=== PATIENT | male | born 1945 | race Caucasian/White ===

== ENCOUNTER 2021-02-26 06:11 | Day surgery (SDC) | payer MEDICARE, BC ==
[2021-02-22 15:24] VITALS: BMI 31.6
--- NOTE | 2021-02-26 05:21 | P.GSHP ---
History of Present Illness H&P Date: 02/26/21 CHIEF COMPLAINT: Back cyst HISTORY OF PRESENT ILLNESS: The patient is a 75 year-old male with history of mass along the left upper back. He presents today for surgical excision. PAST MEDICAL HISTORY: Please see list. PAST SURGICAL HISTORY: Please see list. MEDICATIONS: Please see list. ALLERGIES: Please see list. SOCIAL HISTORY: Please see list. FAMILY HISTORY: No reports of Crohn disease or ulcerative colitis. REVIEW OF ORGAN SYSTEMS: CONSTITUTIONAL: No reports of fevers or chills. GI: Denies any blood in stools or constipation. PHYSICAL EXAM: VITAL SIGNS: Stable Musculoskeletal: No clubbing cyanosis or edema SKIN: Mid back lesion 4 cm, left upper back GENERAL: Well developed and in no acute distress. Pleasant. HEENT: No sclera icterus. Extraocular movements grossly intact. Moist buccal mucosa. Head is atraumatic, normocephalic. Hears conversational speech. No nasal drainage. NECK: Supple without lymphadenopathy. No JV distention. CHEST: Non-labored respirations and equal bilateral excursions. CARDIOVASCULAR: Regular rate and rhythm. Palpable 2+ radial pulses. ABDOMEN: Soft. Non-tender. Nondistended. NEUROLOGIC: No focal or lateralizing signs. PSYCH: Appropriate affect. Alert and oriented to person, place and time. ASSESSMENT: 1. Left upper back mass, 4-cm PLAN: 1. Will proceed of excision of subcutaneous tumor along the back. 2. DVT prophylaxis. 3. Antibiotic prophylaxis. 4. Time of recovery, at least one week. Past Medical History Past Medical History: GERD/Reflux, Hyperlipidemia, Hypertension, Osteoarthritis (OA), Prostate Disorder, Sleep Apnea/CPAP/BIPAP Additional Past Medical History / Comment(s): hx tachycardia, hx diverticulitis, BPH, hx of HTN -now off medications, esophageal achlasia, hx ulcer yrs ago, precancerous skin lessions, has diff swallowing, History of Any Multi-Drug Resistant Organisms: None Reported Past Surgical History: Ablation, Bowel Resection, Cardiac Ablation, Hernia Repair, Joint Replacement, Orthopedic Surgery Additional Past Surgical History / Comment(s): sigmoid resection, ventral hernia repair, ESOPHAGEAL surgery, R knee replacement, R knee arthroscopy, bilateral lasik eye surgery. skin cancer removed from left arm , rey heel spurs, rey cataracts Past Anesthesia/Blood Transfusion Reactions: No Reported Reaction Smoking Status: Former smoker - Past Family History Father Family Medical History: Cancer Additional Family Medical History / Comment(s): lung Mother Family Medical History: Vascular Disorder Additional Family Medical History / Comment(s): Mother of a cerebral aneurysm Medications and Allergies Home Medications Medication Instructions Recorded Confirmed Type Aspirin EC [Ecotrin Low Dose] 81 mg PO HS 09/01/16 02/22/21 History Lansoprazole [Prevacid] 30 mg PO DAILY 09/01/16 02/22/21 History Pravastatin Sodium [Pravachol] 20 mg PO HS 09/01/16 02/22/21 History Sennosides [Senokot] 17.2 mg PO DAILY 09/01/16 02/22/21 History Allergies Allergy/AdvReac Type Severity Reaction Status Date / Time No Known Allergies Allergy Verified 02/22/21 15:07
[~2021-02-26 06:11] MED LIST: ACETAMINOPHEN TAB 500 MG TAB PO PRN; DEXAMETHASONE SOD PHOSPHATE 4 MG/ML 1 ML VIAL IV ONE; HEPARIN SODIUM,PORCINE/PF 5,000 UNIT/0.5 ML SYRINGE SQ PRN; LACTATED RINGERS 1,000 ML IV SCH; LIDOCAINE 1% (10MG/ML) FOR IV START INTRADERMA PRN; MIDAZOLAM 2 MG/2 ML VIAL IV PRN; ONDANSETRON 4 MG/2 ML VIAL IVP ONE; Pre Op ABX Message 1 EACH MISC MISCELLANE ONE
[2021-02-26] MEDS ORDERED: HYDROmorphone 0.5 MG/0.5 ML SYRINGE IVP PRN (07:00)
[2021-02-26 07:04] VITALS: TEMP 97.2
[2021-02-26 07:14] LABS: Basophils % (A) 1 %; Eosinophils # (A) 0.1 k/uL (0-0.7); Eosinophils % (A) 2 %; HCT 46.8 % (39.0-53.0); HGB 16.7 gm/dL (13.0-17.5); Lymphocytes # (A) 1.6 k/uL (1.0-4.8); Lymphocytes % (A) 30 %; MCH 31.9 pg (25.0-35.0); MCHC 35.7 g/dL (31.0-37.0); MCV 89.4 fL (80.0-100.0); Mean Platelet Volume 6.5; Monocytes # (A) 0.3 k/uL (0-1.0); Monocytes % (A) 6 %; Neutrophils # (A) 3.1 k/uL (1.3-7.7); Neutrophils % (A) 60 %; Platelet Count 221 k/uL (150-450); RBC 5.24 m/uL (4.30-5.90); RDW 12.6 % (11.5-15.5); WBC 5.3 k/uL (3.8-10.6)
[2021-02-26 07:23] LABS: ALT 24 U/L (4-49); AST 29 U/L (17-59); African American GFR (CKD) >90 (>60 ml/min/1.73 sqM); Albumin 4.8 g/dL (3.5-5.0); Alkaline Phosphatase 70 U/L (38-126); Anion Gap 9 mmol/L; Blood Urea Nitrogen 12 mg/dL (9-20); Calcium 9.9 mg/dL (8.4-10.2); Carbon Dioxide 28 mmol/L (22-30); Chloride 102 mmol/L (98-107); Glucose 101 mg/dL (74-99); Non-African American GFR(CKD) 78 (>60 ml/min/1.73 sqM); Potassium 3.9 mmol/L (3.5-5.1); Sodium 139 mmol/L (137-145); Total Bilirubin 0.7 mg/dL (0.2-1.3); Total Protein 7.6 g/dL (6.3-8.2)
[2021-02-26] MEDS ORDERED: fentaNYL (PF) 50 MCG/ML 2 ML AMP ONE (07:28)
[2021-02-26] MEDS ORDERED: MIDAZOLAM 2 MG/2 ML VIAL ONE (07:28)
[2021-02-26] MEDS ORDERED: PROPOFOL 10 MG/ML 20 ML VIAL IV ONE (07:28)
[2021-02-26] MEDS ORDERED: LIDOCAINE 1%-EPI 1:100,000 20 ML VIAL SQ ONE (07:33)
[2021-02-26 07:52] LABS: Prothrombin Time 10.6 sec (9.0-12.0)
--- NOTE | 2021-02-26 08:27 | P.OP ---
Date of Procedure: 02/26/21 Description of Procedure: SURGEON: TERESA VASQUES MD [employer]IST[employer] SPECIALIST: None. PREOPERATIVE DIAGNOSES: 1. Left upper back tumor 2. Gastroesophageal reflux disease 3. Hyperlipidemia POSTOPERATIVE DIAGNOSES: 1. Deep subcutaneous left upper back tumor 6 x 3 cm 2. Gastroesophageal reflux disease 3. Hyperlipidemia PROCEDURES PERFORMED: 1. Excision of deep subcutaneous left upper back mass, 6 x 3 cm 2. Intermediate closure left upper back incision, 6-cm Anesthesia: MAC, local Estimated Blood Loss (ml): 5 Pathology: other (back mass) Condition: stable Disposition: same day COMPLICATIONS: None. Operative Findings: 1. Excision of deep subcutaenous back tumor 6 x 3 cm INDICATIONS: The patient is a 75-year-old male who presents with symptomatic left upper back tumor. Benefits and risks of surgical intervention were described including bleeding, infection, seroma, pain and recurrence. Informed consent was obtained. DESCRIPTION OR PROCEDURE: In the preoperative area, the area of concern was marked with indelible marker. Patient was brought into the operating room. After general induction, he was positioned in right lateral decubitus position. The back was prepped and draped in a standard sterile fashion with ChloraPrep. Timeout protocol was confirmed with the surgical team regarding the patient's name, procedure to be performed including preoperative medications. DVT prophylaxis was confirmed. A field block was placed of the left lower back. An transverse incision using #15 blade was made along the marking into the dermis and subcutaneous tissue. Electro-Bovie cautery was used to enter deep into the subcutaneous tissue to the layer of the fascia of 6 x 3 cm. For cl osure, undermining was performed and 0 Vicryl for the fascia and deep subcutaneous tissue followed by 3-0 Monocryl for the subcutaneous tissue was placed in interrupted fashion. The skin was cleansed and Exofin tape with liquid was applied for a third layer closure. The incision was covered with Optifoam dressing. At the end of the procedure, needle, sponge, and instrument count was verified c orrect by surgical corsetier. The patient tolerated the procedure well. Plan - Discharge Summary Discharge Rx Participant: No New Discharge Prescriptions: New Ibuprofen [Motrin] 600 mg PO Q8HR PRN #30 tab PRN Reason: Pain Acetaminophen Tab [Tylenol Tab] 1,000 mg PO Q6HR PRN #30 tablet PRN Reason: Pain Continue Sennosides [Senokot] 17.2 mg PO DAILY Pravastatin Sodium [Pravachol] 20 mg PO HS Lansoprazole [Prevacid] 30 mg PO DAILY Aspirin EC [Ecotrin Low Dose] 81 mg PO HS Discharge Medication List Aspirin EC [Ecotrin Low Dose] 81 mg PO HS 09/01/16 [History] Lansoprazole [Prevacid] 30 mg PO DAILY 09/01/16 [History] Pravastatin Sodium [Pravachol] 20 mg PO HS 09/01/16 [History] Sennosides [Senokot] 17.2 mg PO DAILY 09/01/16 [History] Acetaminophen Tab [Tylenol Tab] 1,000 mg PO Q6HR PRN #30 tablet 02/26/21 [Rx] Ibuprofen [Motrin] 600 mg PO Q8HR PRN #30 tab 02/26/21 [Rx] Follow up Appointment(s)/Referral(s): Teresa Vasques MD [STAFF PHYSICIAN] - 03/02/21 Patient Instructions/Handouts: *Surgery [facility] - (Anesthesia) Discharge Instructions Outpatient Surgery, Excision of Skin Lesion (DC) Activity/Diet/Wound Care/Special Instructions: NO WIDE MOTIONS OF THE SHOULDERS/ARMS FOR 1 WEEK. NO BENDING AT THE HIPS WHILE SITTING NO EXTREME STRETCHING OF THE BACK See instructions on dressing. DO NOT REMOVE DRESSING. No lifting over 10 pounds in 2 weeks, March 12March shower. No bath tub soaks for two weeks, March 12 Diet as tolerated. Discharge Disposition: HOME SELF-CARE
[2021-02-26 08:39] VITALS: BP 135/76; PULSE 67; RESP 18
== END 2021-02-26 08:58 | disposition home or self-care (01) ==
LOC: OR 06:11
PROVIDERS: ATTEND Surgery Plastic and Reconstructive Surgery
DX: L72.8 Other follicular cysts of the skin and subcutaneous tissue (principal); K21.9 Gastro-esophageal reflux disease without esophagitis; K22.0 Achalasia of cardia; E78.5 Hyperlipidemia, unspecified; I10 Essential (primary) hypertension; M19.90 Unspecified osteoarthritis, unspecified site; N40.0 Benign prostatic hyperplasia without lower urinary tract symptoms; G47.33 Obstructive sleep apnea (adult) (pediatric); Z99.89 Dependence on other enabling machines and devices; Z87.19 Personal history of other diseases of the digestive system; R00.0 Tachycardia, unspecified; Z90.49 Acquired absence of other specified parts of digestive tract; Z98.890 Other specified postprocedural states; Z96.651 Presence of right artificial knee joint; Z97.2 Presence of dental prosthetic device (complete) (partial); Z98.42 Cataract extraction status, left eye; Z98.41 Cataract extraction status, right eye; Z87.891 Personal history of nicotine dependence; Z80.1 Family history of malignant neoplasm of trachea, bronchus and lung; Z82.49 Family history of ischemic heart disease and other diseases of the circulatory system; Z79.82 Long term (current) use of aspirin; Z79.899 Other long term (current) drug therapy
CPT/HCPCS: 88304; 80053; 85025; 85610; 11406; 12032; J2250; J1100; J0690; J2405; J3010; J2704; J1644